=== PATIENT | female | born 2000 ===

== ENCOUNTER → 2023-02-21 11:49 | Outpatient (CLI) | payer OTHER, SELFPAY ==
--- NOTE | ~2023-02-21 | US_ITS ---
EXAMINATION: US OB <= 14 weeks fetus INDICATION: Confirmation of viability TECHNIQUE: Sonography of the pelvis was performed by transabdominal technique. COMPARISON: None. RESULT: Uterus: 9.3 x 5.9 x 7.9 cm. Anteverted, retroflexed. Homogenous myometrium. Intrauterine gestational sac: Single present. Yolk sac: Present, not directly measured. Embryo: Single present. [place] rump length: 2.44 cm, corresponding gestational age 9 weeks, 1 days. Gestational heart rate: present 167 bpm. Subgestational hematoma: Absent . Right ovary: Not visualized. No adnexal mass. Left ovary: Not visualized. No adnexal mass. Pelvis free fluid: None. IMPRESSION: Single, live intrauterine gestation. Estimated Gestational Age: 9 weeks, 1 days by crown rump length. [facility] by ultrasound 09/25/2023. Reviewed, dictated and finalized at location [facility]. IMPRESSION: Single, live intrauterine gestation. Estimated Gestational Age: 9 weeks, 1 days by crown rump length. [facility] by ultras ound 09/25/2023.
== END ==
PROVIDERS: PCP Advanced Practice Midwife; Visit Provider Advanced Practice Midwife
DX: O36.80X0 Pregnancy with inconclusive fetal viability, not applicable or unspecified (principal)
CPT/HCPCS: 76801